=== PATIENT | male | born 1965 | race Caucasian/White ===

== ENCOUNTER 2020-08-02 03:06 | Emergency (ER) | payer OTHER ==
[~2020-08-02] VITALS: Ht 210.8 cm; Wt 127.0 kg
[2020-08-02 05:00] VITALS: Ht 210.8 cm; Wt 127.0 kg
[2020-08-02 05:59] LABS: BASOPHIL % 0.8 % (0.2-1.5); PLATELET COUNT 141 x10^3mcL (152-348)
[2020-08-02 06:12] LABS: CALCIUM 8.2 mg/dL (8.5-10.1); CARBON DIOXIDE 27.8 mmol/L (21-32); CHLORIDE SERUM 105 mmol/L (98-107); CREATININE SERUM 1.1 mg/dL (0.7-1.3); GFR1 > 60 mL/min; GLUCOSE SERUM 90 mg/dL (74-106); POTASSIUM SERUM 3.5 mmol/L (3.5-5.1); SODIUM SERUM 143 mmol/L (136-145)
[2020-08-02 06:17] LABS: ALBUMIN 3.5 g/dL (3.4-5.0); ALKALINE PHOSPHATASE 64 U/L (46-116); ALT/SGPT 16 U/L (16-63); AST/SGOT 15 U/L (15-37); BILIRUBIN TOTAL 0.26 mg/dL (0.20-1.00)
[2020-08-02 09:03] LABS: microscopic required? NO
[2020-08-02 11:02] VITALS: BP 122/70
[2020-08-02 11:26] LABS: AMPHETAMINE QUAL UR NONE DETECTED (See below)
== END 2020-08-02 11:02 | disposition left against medical advice (07) ==
LOC: ED 03:06
PROVIDERS: Emergency Medicine
DX: G93.40 Encephalopathy, unspecified (principal); M54.5 Low back pain; I10 Essential (primary) hypertension; Z20.828 Contact with and (suspected) exposure to other viral communicable diseases
CPT/HCPCS: G0480; U0003